=== PATIENT | female | born 1970 ===

== ENCOUNTER 2021-10-04 12:08 | Emergency (ER) | payer MEDICARE ==
[2021-10-04 12:26] VITALS: BP 134/85
--- NOTE | 2021-10-04 14:17 | XRay Report ---
CHEST 2 VIEWS INDICATION: Chest Pain. Shortness of breath, dizziness, palpitations for one day COMPARISON: none FINDINGS: Support devices: None. Heart: Within normal limits. Lungs/pleura: No acute air space or interstitial disease. No pleural abnormality or pneumothorax. Additional findings: Lower cervical fusion changes are partially imaged IMPRESSION: No acute findings. Signer Name: Maximilian Roman Jr, MD Signed: 10/04/2021 2:13 PM Workstation Name: [id number]
[2021-10-04 14:36] LABS: Basophils % (Auto) 0.7 % (0.0-1.8); Eosinophils % (Auto) 0.9 % (0.0-4.3); Hematocrit 40.6 % (30.3-42.9); Hemoglobin 12.8 gm/dl (10.1-14.3); Lymphocytes # (Auto) 2.4 K/mm3 (1.2-5.4); Lymphocytes % (Auto) 43.2 % (13.4-35.0); Mean Corpuscular HGB Conc 32 % (30-34); Mean Corpuscular Volume 75 fl (79-97); Monocytes # (Auto) 0.2 K/mm3 (0.0-0.8); Monocytes % (Auto) 3.4 % (0.0-7.3); Platelet Count 364 K/mm3 (140-440); Red Blood Count 5.45 M/mm3 (3.65-5.03); Red Cell Distribution Width 15.8 % (13.2-15.2)
[2021-10-04 15:04] LABS: Alanine Aminotransferase 11 units/L (7-56); Albumin 4.9 g/dL (3.9-5); BUN/Creatinine Ratio 11; Blood Urea Nitrogen 10 mg/dL (7-17); Calcium 10.3 mg/dL (8.4-10.2); Hemolysis Index 2
--- NOTE | 2021-10-05 10:24 | Electrocardiograph Report ---
[facility] Test Date: 2021-10-04 Test Time: 12:41:24 Pat Name: KYLAH GARCIA Department: Room: Gender: F [employer]: DEBRA : 1970 Requested By: WILBERT TAVERA Order Number: [id number] Reading MD: Flako Carnes Measurements Intervals [place] Rate: 99 P: 48 DE: 126 QRS: 76 QRSD: 84 T: -1 QT: 329 QTc: 423 Interpretive Statements Sinus rhythm No previous ECG available for comparison Electronically Signed On 10-05-2021 10:24:10 EDT by Flako Carnes
== END 2021-10-05 13:42 | disposition left against medical advice (07) ==
LOC: ED 12:08
DX: R06.02 Shortness of breath (principal); Z53.21 Procedure and treatment not carried out due to patient leaving prior to being seen by health care provider
CPT/HCPCS: 36415; 71046; 80053; 84484; 85025; 93005